=== PATIENT | female | born 1990 | race Caucasian/White ===

== ENCOUNTER → 2018-03-21 | Outpatient (REF) | payer OTHER | LOC: M SFHCLERA 20:22 | DX: J02.9 Acute pharyngitis, unspecified (principal) ==

== ENCOUNTER → 2018-11-10 | Outpatient (CLI) | payer OTHER ==
[~2018-11-10] MED LIST: PRENTAB55 PO
--- NOTE | 2018-11-10 15:44 | REP ---
RIGHT LOWER EXTREMITY DUPLEX VEINS: HISTORY: Leg pain. There are no filling defects in the deep venous system. The deep venous system is patent. IMPRESSION: There is no deep venous thrombosis. Electronically Signed by Gurmeet Naylor MD 11/10/2018 03:46 P
== END ==
LOC: M RAD 14:49
PROVIDERS: ATTEND Nurse Practitioner Women's Health
DX: M25.571 Pain in right ankle and joints of right foot (principal)

== ENCOUNTER 2018-11-18 21:01 | Emergency (ER) | payer OTHER ==
[~2018-11-18] VITALS: Ht 157.5 cm; Wt 75.0 kg
[2018-11-18] MEDS ORDERED: ACET-683 PO (21:35)
[2018-11-18] MEDS ORDERED: VITA125C2 PO (21:35)
[2018-11-18 22:08] LABS: INFLUENZA A AMPLIFICATION POSITIVE (NEGATIVE); INFLUENZA B AMPLIFICATION NEGATIVE (NEGATIVE)
[2018-11-18] MEDS ORDERED: OSEL75CA PO (22:21)
[2018-11-18 22:29] VITALS: BP 121/70
[2018-11-18] MEDS ORDERED: OSELTAMIVIR PHOSPHATE 75 MG CAP (TAMIFLU) PO ONE (22:30)
== END 2018-11-18 22:29 | disposition home or self-care (01) ==
LOC: M ED 21:01
DX: O99.53 Diseases of the respiratory system complicating the puerperium (principal); J09.X2 Influenza due to identified novel influenza A virus with other respiratory manifestations; O24.419 Gestational diabetes mellitus in pregnancy, unspecified control; Z3A.29 29 weeks gestation of pregnancy

== ENCOUNTER 2018-11-26 08:57 | Emergency (ER) | payer OTHER ==
[~2018-11-26] VITALS: Ht 157.5 cm; Wt 72.7 kg
[~2018-11-26 08:57] MED LIST changes: +ACET-683 PO; +OSEL75CA PO; +VITA125C2 PO
[2018-11-26] MEDS ORDERED: LIDOCAINE W/EPINEPHRINE 1% 20ML VIAL SC ONE (10:15)
[2018-11-26] MEDS ORDERED: CLIN150C14 PO (11:00)
[2018-11-26 11:21] VITALS: BP 114/68
== END 2018-11-26 11:30 | disposition home or self-care (01) ==
LOC: M ED 08:57
DX: O99.713 Diseases of the skin and subcutaneous tissue complicating pregnancy, third trimester (principal); L05.01 Pilonidal cyst with abscess; Z91.81 History of falling; O24.410 Gestational diabetes mellitus in pregnancy, diet controlled; O26.893 Other specified pregnancy related conditions, third trimester; M41.9 Scoliosis, unspecified; Z3A.30 30 weeks gestation of pregnancy

== ENCOUNTER 2018-12-13 11:55 | Outpatient (CLI) | payer OTHER ==
[~2018-12-13] VITALS: Ht 157.5 cm; Wt 76.0 kg
[~2018-12-13 11:55] MED LIST changes: +CLIN150C14 PO
[2018-12-13 12:21] VITALS: BP 100/57
== END 2018-12-13 12:45 | disposition home or self-care (01) ==
LOC: M LDO 11:55
PROVIDERS: ATTEND Obstetrics & Gynecology
DX: O36.8130 Decreased fetal movements, third trimester, not applicable or unspecified (principal); O99.343 Other mental disorders complicating pregnancy, third trimester; F41.9 Anxiety disorder, unspecified; Z3A.32 32 weeks gestation of pregnancy
CPT/HCPCS: 59025; G0378; G0463

== ENCOUNTER 2019-01-20 03:05 | Outpatient (CLI) | payer OTHER ==
[~2019-01-20] VITALS: Ht 157.5 cm; Wt 76.1 kg
[2019-01-20 03:18] VITALS: BP 117/70
[2019-01-20 04:55] VITALS: BP 125/79
[2019-01-21] MEDS ORDERED: MAPA500T2 PO (09:11)
[2019-01-21] MEDS ORDERED: IBUP-1114 PO (09:12)
[2019-01-21] MEDS ORDERED: NUPE10OI TOP (09:13)
== END 2019-01-20 05:00 | disposition home or self-care (01) ==
LOC: M LDO 03:05
PROVIDERS: ATTEND Obstetrics & Gynecology
DX: O47.1 False labor at or after 37 completed weeks of gestation (principal); Z3A.38 38 weeks gestation of pregnancy
CPT/HCPCS: 59025; G0378; G0463

== ENCOUNTER 2019-01-20 06:27 | Inpatient (IN) | payer OTHER ==
[~2019-01-20] VITALS: Ht 157.5 cm; Wt 76.1 kg
[2019-01-20] VITALS (9 sets, daily range): BP systolic 98–119; BP diastolic 61–83
--- NOTE | 2019-01-20 07:29 | HPEPDOC ---
Obstetrical History & Physical General Date of Admission January 20, 2019 at 06:35 History of Present Illness 28 y/o at 38+1 with LOF and reg painful ctx's right as she got to the room. Was fully and delivered shortly thereafter. Preg c/b GDMA1, uncomplicated. Also echogenic focus with a nl quad screen, Also in MAR malachi a pilonidal cyst Chief Complaint: Contractions, term Information Provided By: Patient Dating Final EDC by: LMP, 1st trimester (US) Past Medical History Past Obstetrical History : Type of Delivery: Spontaneous Vaginal Del. 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 Past Medical History Medical History scoliosis Surgical History: [place] teeth Social History Marital Status: Family situation: Spouse/partner home Psychosocial History: No pertinent psych hx * Smoker: non-smoker Alcohol: Denies Drugs: denies Abuse Violence Screening Have you been hit/kicked/slapp: No Have you been sexually assault: No Imunizations Tdap status: current Influenza Status: current Allergies Coded Allergies: No Known Allergies (Unverified , 04/17/15) Medications Scheduled [id number]/Iron Fum/Folic/Docusate ( 19 Tablet) 1 Tab Tab, 1 TAB PO DAILY Physical Examination Physical Examination GENERAL: Alert and oriented times three. ABDOMEN: Gravid and non-tender to touch. FETUS: Is vertex (VTX) by sterile vaginal examination (SVE) EXTREMITIES: No edema. Laboratory Data Urine Culture: Contaminated Pertinent Laboratoy Data Blood Type: B+ RBC Antibody Screen: Negative HIV: Negative Hepatitis B: Negative Hepatitis C: Unknown Rapid Plasma Reagin: Nonreactive Rubella: Immune Varicella: Immune Chlamydia/Gonorrhea: Negative Group B Streptococcus: Positive Quad Screen Test: Negative Cystic Fibrosis: Declined Anatomy Ultrasound Placenta Location: Posterior Normal Anatomy: Yes Placenta Previa: No Tocometer Contractions: Yes Frequency: regular Duration: greater than 60 seconds Strength: palpated as strong Assessment/Plan Assessment Uncomplicated "drive-by" delivery. See del note Plan Pitocin 10 u given IM after placenta. Reg diet p delivery. ROBIN MORSE MD January 20, 2019 07:29
[2019-01-20] MEDS ORDERED: RHOGAM 300 MCG (1500 IU) INJ (J2790) IM SCH (07:30)
[2019-01-20] MEDS ORDERED: MEASLES,MUMPS,RUBELLA VACCINE INJ (MMR-II) (90707) SC SCH (07:30)
[2019-01-20] MEDS ORDERED: OXYTOCIN INJ 10 UNITS/ML VIAL (J2590) IM ONE (07:30)
[2019-01-20] MEDS ORDERED: DIBUCAINE 1% OINTMENT 30GM TOP PRN (07:30)
[2019-01-20] MEDS ORDERED: ACETAMINOPHEN TAB 650MG DOSE (2X325MG) PO PRN (07:30)
--- NOTE | 2019-01-20 07:35 | DNPDOC ---
[facility] Delivery Note Delivery Note DATE OF DELIVERY: [id number] PREDELIVERY DIAGNOSIS: 38 1/7 weeks' gestation and labor. POST DELIVERY DIAGNOSIS: Delivered. PROCEDURE: Spontaneous vaginal delivery EXIT BOOTH AGENT: Dr. Morse ANESTHESIA: natural ESTIMATED BLOOD LOSS: 200 mL. FINDINGS: 6 pound 6 ounce female , Score 8/9 DELIVERY SUMMARY: In room, had just enough time to gown and glove. 2 pushes and del'd the vtx and ant//post shoulders w/o delay, very easy. Vigorous infant to abd. Cord blood C/C by mother, cord blood. Plac intact, fundus firm, pit given IM. 1st degr per lac repaired with 3-0 vicryl after 1% lidocaine bath. Good cosmesis/hemostasis. Sessions MD MORSE,ROBIN Nicolas MD January 20, 2019 07:35
[2019-01-20] MEDS ORDERED: LIDOCAINE 1% MDV 20ML VIAL INFIL ONE (07:45)
[2019-01-20] MEDS ORDERED: METHYLERGONOVINE MALEATE 0.2 MG/ML VIAL (J2210) IM STA (08:16)
[2019-01-20] MEDS: PRENATAL VITAMINS CHEWABLE TABLET PO SCH (08:29)
[2019-01-20 09:08] LABS: HEMATOCRIT 41.3 % (36.0-47.0); HEMOGLOBIN 13.7 g/dl (12.0-15.5); MEAN CORPUSCULAR HEMOGLOBIN 31.8 pg (27.0-33.0); MEAN CORPUSCULAR HGB CONC 33.2 g/dl (32.0-36.5); MEAN CORPUSCULAR VOLUME 95.8 fl (80.0-96.0); PLATELET COUNT, AUTOMATED 185 10^3/uL (150-450); RED BLOOD COUNT 4.31 10^6/uL (4.00-5.40); WHITE BLOOD COUNT 11.8 10^3/uL (4.0-10.0)
[2019-01-20] MEDS ORDERED: miSOPROStol 200 MCG TAB (S0191) PR ONE (09:30)
[2019-01-20] MEDS ORDERED: OXYTOCIN 30 UNITS IN 0.9% NaCl 500ML IV BAG (J2590) As Ordered ONE (09:34)
--- NOTE | 2019-01-20 09:36 | IPNPDOC ---
Text Note Date of Service The patient was seen on 01/20/19. NOTE Called by L&D due to bleeding, nothing heavy, but a steady trickle. Teddy is a 28 yo s/p precipitous delivery this AM at ~0700. On exam she has mild uterine atony. She received 1 dose of 0.2mg IM methergine. Bleeding is minimal, but atony is present. I placed 800mcg [place] cytotec. Will continue to monitor closely. DO Kevin A-FIB/EDITHDSVASC A-FIB History Current/History of A-Fib/PAF?: No VS,Fishbone, I+O VS, Fishbone, I+O Laboratory Tests 01/20/19 07:25 Red Blood Count 4.31, Mean Corpuscular Volume 95.8, Mean Corpuscular Hemoglobin 31.8, Mean Corpuscular Hemoglobin Concent 33.2, Red Cell Distribution Width 13.2 Vital Signs Date Time Temp Pulse Resp B/P (MAP) Pulse Ox O2 Delivery O2 Flow Rate FiO2 01/20/19 08:34 77 98/66 (77) 01/20/19 08:32 98.5 18 PRAVEENA OSUNA DO January 20, 2019 09:36
[2019-01-20] MEDS ORDERED: OXYTOCIN DRIP 30 UNITS in APPROPRIATE DILUENT 1 EA IV SCH (09:53)
[2019-01-20] MEDS: IBUPROFEN 800 MG TAB PO PRN ×2 (14:33→23:51)
[2019-01-21 06:00] VITALS: BP 114/65
--- NOTE | 2019-01-21 07:15 | DS.PDOC ---
Discharge Summary General Date of Admission January 20, 2019 at 06:35 Date of Discharge January 21, 2019 Discharge Summary HOSPITAL COURSE: Ms. Lomeli is a 28 yo G2 now P2 who underwent an uncomplicated precipitous on 20Jan2019 in the AM after being admitted for active labor. Her course has been unremarkable. On her day of discharge she met all appropriate discharge criteria. She was ambulating, voiding, tolerating a regular diet, had no pain, and had minimal lochia. DISCHARGE MEDICATIONS: Please see below. ALLERGIES: Please see below. PHYSICAL EXAMINATION ON DISCHARGE: VITAL SIGNS: Please see below. GENERAL: AAOX3, sitting up in bed, NAD ABDOMINAL EXAMINATION: Fundus firm at U-2. No fundal tenderness. EXTREMITIES: No edema PSYCHIATRIC EXAMINATION: Affect appropriate LABORATORY DATA: Please see below. ACTIVITY: Pelvic rest for 6 weeks DIET: Regular DISCHARGE PLAN: Discharge to home or boarder DISPOSITION: Discharge to home or to boarder on 21Jan2019. DISCHARGE INSTRUCTIONS: 1. Pelvic rest for 6 weeks. ITEMS TO FOLLOWUP ON ON OUTPATIENT: 1. appointment in 6 weeks. DISCHARGE CONDITION: Stable. TIME SPENT ON DISCHARGE: Greater than 20 minutes. Praveena Brown DO Vital Signs/I&Os Vital Signs Date Time Temp Pulse Resp B/P (MAP) Pulse Ox O2 Delivery O2 Flow Rate FiO2 01/21/19 06:00 98.4 72 18 114/65 (81) I&O- Last 24 Hours up to 6 AM 01/21/19 06:00 Output Total 700 ml Balance -700 ml Laboratory Data Labs 24H Laboratory Tests 2 01/20/19 07:25: Nucleated Red Blood Cells % (auto) 0.0 01/20/19 07:59: Serology Scanned Report Hepatitis B Testing CBC/BMP Laboratory Tests 01/20/19 07:25 Red Blood Count 4.31, Mean Corpuscular Volume 95.8, Mean Corpuscular Hemoglobin 31.8, Mean Corpuscular Hemoglobin Concent 33.2, Red Cell Distribution Width 13.2 Discharge Medications Scheduled [id number]/Iron Fum/Folic/Docusate ( 19 Tablet) 1 Tab Tab, 1 TAB PO DAILY, (Reported) Allergies Coded Allergies: No Known Allergies (Unverified , 04/17/15) PRAVEENA BROWN DO January 21, 2019 07:15
[2019-01-21] MEDS: PRENATAL VITAMINS CHEWABLE TABLET PO SCH (07:43)
[2019-01-21] MEDS ORDERED: MAPA500T2 PO (09:11)
[2019-01-21] MEDS ORDERED: IBUP-1114 PO (09:12)
[2019-01-21] MEDS ORDERED: NUPE10OI TOP (09:13)
== END 2019-01-21 12:16 | disposition home or self-care (01) | DRG 807 ==
LOC: M LDO 06:27 → M NBNUR 06:35 → M LDI 07:10 → M OBS 12:14
PROVIDERS: ADMIT Obstetrics & Gynecology; ATTEND Obstetrics & Gynecology
PROC: 10E0XZZ Delivery of Products of Conception, External Approach (ICD-10-PCS; principal; 2019-01-20)
PROC: 0HQ9XZZ Repair Perineum Skin, External Approach (ICD-10-PCS; 2019-01-20)
DX: O62.3 Precipitate labor (principal); Z37.0 Single live birth; Z3A.38 38 weeks gestation of pregnancy; O75.89 Other specified complications of labor and delivery; O70.0 First degree perineal laceration during delivery